=== PATIENT | male | born 1940 | race Caucasian/White ===

== ENCOUNTER 2018-03-08 17:26 | Emergency (ER) | payer OTHER, MEDICARE ==
[2018-03-08 17:33] VITALS: BP 136/83
--- NOTE | 2018-03-08 17:53 | EDPHY ---
H & P Time Seen by Provider: 03/08/18 17:39 HPI/ROS: Chief complaint. Wrist and hand pain HPI. 69-year-old male slip and fall on ice yesterday. He struck his right hand. Today continues to be painful somewhat swollen. Worse with movement. He did strike his right hip as well but has been walking and feels that that is okay. Did not strike his head or lose consciousness. No previous fracture to this area. He is right handed ROS 10 systems were reviewed and negative with the exception of the elements mentioned in the history of present illness Past Medical/Surgical History: Healthy Social History: Single, nonsmoker, no alcohol Smoking Status: Never smoked Physical Exam: General Appearance: Alert well-developed male mild distress vital signs stable Eyes: Pupils equal and round no pallor or injection. ENT, Mouth: Mucous membranes are moist. Respiratory: There are no retractions, lungs are clear to auscultation. Cardiovascular: Regular rate and rhythm. Gastrointestinal: Abdomen is soft and nontender, no masses, bowel sounds normal. Neurological: Awake and alert, sensory and motor exams grossly normal. Skin: Warm and dry, no rashes. Musculoskeletal: Neck is supple nontender. Extremities swelling to the lateral aspect of his right hand. Tenderness at the base of the 5th metatarsal as well as to the distal wrist. No obvious deformity. Psychiatric: Patient is oriented X 3, there is no agitation. Constitutional: Initial Vital Signs Temperature (C) 36.3 C 03/08/18 17:30 Heart Rate 67 03/08/18 17:30 Respiratory Rate 18 03/08/18 17:30 Blood Pressure 136/83 H 03/08/18 17:30 O2 Sat (%) 95 03/08/18 17:30 O2 Delivery Mode Room Air Allergies/Adverse Reactions: Penicillins Allergy (Verified 03/08/18 17:27) Home Medications: Medication Instructions Recorded NK [No Known Home Meds] 03/08/18 Medical Decision Making - Diagnostics Imaging Results: Imaging Impressions Wrist X-Ray 03/08/18 17:45 Impression: Nothing acute identified. X-ray interpreted by me of hand and wrist is normal Procedures: Patient is placed in a Velcro splint. Post splint application shows good anatomic position and motor vascular sensitivity to be intact ED Course/Re-evaluation: Patient and I discussed imaging study results. We discussed treatment plan including criteria for return and importance of follow-up and further evaluation. He expresses understanding and agreement Differential Diagnosis: I considered contusion, fracture, dislocation Departure - Departure Disposition: Home, Routine, Self-Care Clinical Impression: Contusion, hand Qualifiers: Encounter type: initial encounter Laterality: right Qualified Code(s): S60.221A - Contusion of right hand, initial encounter Condition: Good Instructions: Contusion in Adults (ED) Additional Instructions: Ice next 24 hr. Ibuprofen as needed for pain Splint on until comfortable without Return for worsening symptoms. Follow up with your regular physician for continuing symptoms. Referrals: Sanjana Mcfarlane MD [Primary Care Provider] - 5-7 days, if not improved
== END 2018-03-08 18:20 | disposition home or self-care (01) ==
DX: S60.221A Contusion of right hand, initial encounter (principal); W00.0XXA Fall on same level due to ice and snow, initial encounter; Y92.9 Unspecified place or not applicable; Y93.9 Activity, unspecified; Y99.9 Unspecified external cause status
CPT/HCPCS: 73110; L3984